=== PATIENT | female | born 1995 | race Caucasian/White ===

== ENCOUNTER 2016-08-29 19:52 | Emergency (ER) | payer BC, OTHER ==
[~2016-08-29 19:52] MED LIST: [UNRECOGNIZED DRUG - CODE] EXT; [UNRECOGNIZED DRUG - CODE] PO
[2016-08-29] MEDS ORDERED: TRAZ100T29 PO (20:34)
[2016-08-29] MEDS ORDERED: CHOL1000 PO (20:34)
[2016-08-29] MEDS ORDERED: LMC/150 PO (20:34)
[2016-08-29] MEDS ORDERED: MELA5TAB20 PO (20:34)
[2016-08-29] MEDS ORDERED: SERT25TA PO (20:34)
[2016-08-29] MEDS ORDERED: ATV/1 PO (20:34)
[2016-08-29] MEDS ORDERED: VITACAP26 PO (20:34)
[2016-08-29] MEDS ORDERED: MISCCAP80 PO (20:34)
[2016-08-29] MEDS ORDERED: BACL10TA PO (20:34)
[2016-08-29] MEDS ORDERED: MAGN1CAP4 PO (20:34)
--- NOTE | 2016-08-29 21:06 | DIAGNOSTIC IMAGING REPORT ---
LEFT FEMUR 2 VIEWS ROUTINE CLINICAL HISTORY: Left flank pain COMPARISON: None. DISCUSSION: The bones are gracile. No acute fractures are visualized. The bones are osteopenic IMPRESSION: No fractures, dislocations, or destructive lesions are visualized. Electronically signed by: Yair Siegel M.D. 08/29/2016 9:04 PM Dictated Date/Time: 08/29/2016 9:04 PM
[2016-08-29 21:40] VITALS: BP 122/70; PULSE 78; O2SAT 97
--- NOTE | 2016-08-30 04:52 | EMERGENCY ROOM VISIT NOTE ---
History Report prepared by Marcio: Margy Daniel Under the Supervision of: Dr. Cl Barnes M.D. First contact with patient: 20:25 Chief Complaint: OTHER COMPLAINT Stated Complaint: MUSCULAR/NEUROLOGICAL- HIP SEEMS TO BOTHER HER History of Present Illness The patient is a 20 year old female who presents to the Emergency Room via parents to be evaluated for persistent left leg discomfort with onset one day ago. As the patient is nonverbal, her parents provided the history. One day ago , the patient returned from home from school. The patient's aide was helping her out of the wheelchair and noticed that the patient was not helping her as much as she usually does. Her parents note that the school did not report any falls. Yesterday, her parents noticed that the patient would pull her left leg up as if it was bothering her. Usually, the patient can flip herself over into a crawling position, however, she has not been doing this. Along with the leg discomfort, the patient had increased drooling. She had more weakness and seemed more lethargic. The patient's mother notes that the patient's Baclofen dosage has been increased recently to three doses a day. The patient's mother denies LOC, headache, fevers, chills, diaphoresis, visual changes, neck pain, chest pain, breathing difficulties, nausea, vomiting, abdominal pain, back pain , melena, hematochezia, urinary symptoms, numbness, lymphadenopathy, rash, or other complaints. Additionally, the patient's mother notes that, one week ago, the patient had a dental procedure and was put under anaesthesia for this for two hours. Source of History: parent Onset: one day ago Position: leg (left) Quality: other (left leg discomfort ) Timing: other (persistent) Note: Along with the leg discomfort, the patient had increased drooling. She had more weakness and seemed more lethargic. Review of Systems See HPI for pertinent positives and negatives. A total of ten systems were reviewed and were otherwise negative. Past Medical & Surgical Medical Problems: (1) Nonverbal Family History Cancer Diabetes mellitus Hypertension Kidney disease Kidney stones Seizures Social History Smoking Status: Never Smoker Drug Use: none Housing Status: lives with family Occupation Status: student Current/Historical Medications Scheduled Baclofen (Lioresal), 10 MG PO BID Cholecalciferol (Vitamin D3), 1,000 UNITS PO DAILY Lamotrigine (Lamictal), 75 MG PO BID Lorazepam (Ativan), 1 MG PO HS Magnesium Oxide (Magnesium), 500 MG PO DAILY Melatonin (Cvs Melatonin), 5 MG PO HS Probiotic Product (Probiotic), 1 CAP PO DAILY Sertraline (Zoloft), 37.5 MG PO QAM Trazodone Hcl (Trazodone), 100 MG PO HS Vitamins C & E (Vitamin C), 1 CAP PO DAILY Allergies Coded Allergies: Morphine (Verified Allergy, Unknown, `, 08/29/16) Physical Exam Vital Signs Date Time Temp Pulse Resp B/P Pulse Ox O2 Delivery O2 Flow Rate FiO2 08/29/16 21:40 78 20 122/70 97 08/29/16 19:56 90 18 92/53 96 Room Air Physical Exam GENERAL: Awake, alert, well-appearing, in no distress HENT: Normocephalic, atraumatic. Oropharynx unremarkable. EYES: Normal conjunctiva. Sclera non-icteric. Pupils are equal, round, and reactive. NECK: Supple. No nuchal rigidity. FROM. No JVD. RESPIRATORY: Clear to auscultation. CARDIAC: Regular rate, normal rhythm. Extremities warm and well perfused. Pulses equal. ABDOMEN: Soft, non-distended. No tenderness to palpation. No rebound or guarding. No masses. RECTAL: Deferred. MUSCULOSKELETAL: Chest examination reveals no tenderness. The back is symmetrical on inspection without obvious abnormality. There is no CVA tenderness to palpation. No joint edema. Spasticity noted in the upper extremities, without any tenderness or deformity. LOWER EXTREMITIES: Calves are equal size bilaterally and non-tender. No edema. No discoloration. Spasticity noted in the lower extremities, without any tenderness or deformity. NEURO: MRCP (baseline per parents). SKIN: No rash or jaundice noted. Medical Decision & Procedures ER Provider Diagnostic Interpretation: X-ray: Per my interpretation, radiologist review. LEFT FEMUR 2 VIEWS ROUTINE CLINICAL HISTORY: Left flank pain COMPARISON: None. DISCUSSION: The bones are gracile. No acute fractures are visualized. The bones are osteopenic IMPRESSION: No fractures, dislocations, or destructive lesions are visualized. Electronically signed by: Yair Siegel M.D. 08/29/2016 9:04 PM Dictated Date/Time: 08/29/2016 9:04 PM ED Course 2036: The patient was evaluated in room C3. A complete history and physical exam was performed. 2120: I discussed the case with Dr. Lawson (Pediatrics), who is the patient's primary care physician. She agrees with the treatment plan. 2121: I reevaluated the patient. Discussed results and discharge instructions with the patient's parents. They verbalized understanding and agreement. The patient is ready for discharge. Medical Decision Prior records reviewed and summarized above. Triage Nursing notes reviewed and agree them. Additional history obtained from family and her lamp shades supervisor, Dr. Lawson The patient's history was concerning for possible leg pain. Differential diagnosis: Etiologies such as fracture, dislocation, medication side effect, soft tissue injury, as well as others were entertained. Physical examination: As above. No gross deformity. No signs of infection. ER treatment provided: No medication given. On reassessment the patient was doing well. Diagnostics interpreted by me: Imaging studies: Xrays as above. The patient presented on direction of her primary physician. Dr. Lawson did evaluate patient in the Emergency Room. There has been a recent increase in her baclofen dosing. The parents question if this could be related to that and they did contact neurology who recommended backing off on the dosing. The patient had x-ray imaging performed. There is no evidence of fracture or dislocation. I discussed conservative management with the patient and family as to Dr. Lawson and they felt very comfortable. If the Patient worsens in any way she will come back to the Emergency Room. By the evaluation outlined above emergent etiologies such as fracture, dislocation, neurovascular compromise, compartment syndrome, infections, as well as others were deemed relatively unlikely. The family was informed about the findings as listed above. All questions were answered and they were pleased with the treatment. Return instructions were outlined and the patient was discharged in stable condition. Referral: The patient was referred to their primary care physician next week for a recheck of your current condition. The chart was completed utilizing [employer] voice recognition software. Grammatical errors, random word insertions, pronoun errors, and incomplete sentences are an occasional consequence of this system due to software limitations, ambient noise, and hardware issues. Any formal questions or concerns about the content, text, or information contained within the body of this dictation should be directly addressed to the physician for clarification. Consults Time Called: 2119 Consulting Physician: Dr. Lawson (Pediatrics) Returned Call: 2120 I discussed the case with Dr. Lawson (Pediatrics), who is the patient's primary care physician. She agrees with the treatment plan. Impression Primary Impression: Left leg pain Scribe Attestation The scribe's documentation has been prepared under my direction and personally reviewed by me in its entirety. I confirm that the note above accurately reflects all work, treatment, procedures, and medical decision making performed by me. Departure Information Dispostion Home / Self-Care Referrals Hailey Lawson M.D. (PCP) Forms HOME CARE DOCUMENTATION FORM, IMPORTANT VISIT INFORMATION, WORK / SCHOOL INSTRUCTIONS Patient Instructions My [facility] Additional Instructions Follow the instructions by neurology to decrease the baclofen. X-ray imaging was negative. Continue current medications otherwise. Follow-up with your primary next week. Return to Emergency Room for increasing leg pain, weakness, fever, or as needed.
== END 2016-08-29 21:41 | disposition home or self-care (01) ==
LOC: C.EDB 19:53 → C.EDC 21:41
DX: M79.605 Pain in left leg (principal); Z80.9 Family history of malignant neoplasm, unspecified; Z82.49 Family history of ischemic heart disease and other diseases of the circulatory system; Z84.1 Family history of disorders of kidney and ureter; Z82.0 Family history of epilepsy and other diseases of the nervous system

== ENCOUNTER 2017-03-15 15:51 | Emergency (ER) | payer BC, OTHER ==
[~2017-03-15 15:51] MED LIST changes: +ATV/1 PO; +BACL10TA PO; +CHOL1000 PO; +LMC/150 PO; +MAGN1CAP4 PO; +MELA5TAB20 PO; +MISCCAP80 PO; +SERT25TA PO; +TRAZ100T29 PO; +VITACAP26 PO; -[UNRECOGNIZED DRUG - CODE] EXT; -[UNRECOGNIZED DRUG - CODE] PO
[2017-03-15 15:56] VITALS: TEMP 36.3
[2017-03-15] MEDS ORDERED: HYDROCODONE/APAP 2.5MG/108MG ELIX 5 ML UDP PO STA (16:20)
[2017-03-15] MEDS ORDERED: ACETAMINOPHEN/HYDROCODONE ELIX 15 ML/CUP UDP ONE (16:29)
[2017-03-15] MEDS ORDERED: BACITRACIN OINT 15 GM TUBE EXT ONE (16:30)
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
[2017-03-15 18:26] VITALS: BP 130/76; PULSE 95; O2SAT 99
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
== END 2017-03-15 18:27 | disposition home or self-care (01) ==
LOC: C.EDB 15:51
DX: S00.81XA Abrasion of other part of head, initial encounter (principal); S60.511A Abrasion of right hand, initial encounter; S60.512A Abrasion of left hand, initial encounter; S90.811A Abrasion, right foot, initial encounter; S00.511A Abrasion of lip, initial encounter; V18.1XXA Pedal cycle passenger injured in noncollision transport accident in nontraffic accident, initial encounter; Y92.410 Unspecified street and highway as the place of occurrence of the external cause; G80.9 Cerebral palsy, unspecified; Z79.899 Other long term (current) drug therapy; S02.5XXA Fracture of tooth (traumatic), initial encounter for closed fracture

== ENCOUNTER → 2017-08-29 | Outpatient (CLI) | payer OTHER ==
[2017-08-29 13:18] LABS: ALBUMIN 4.2 gm/dl (3.4-5.0); ALT/SGPT 33 U/L (12-78); AST/SGOT 19 U/L (15-37); BLOOD UREA NITROGEN 19 mg/dl (7-18); CALCIUM 9.5 mg/dl (8.5-10.1); CARBON DIOXIDE 28 mmol/L (21-32); CREATININE 0.62 mg/dl (0.60-1.20); GLUCOSE 87 mg/dl (70-99); POTASSIUM 3.9 mmol/L (3.5-5.1); SODIUM 140 mmol/L (136-145)
[2017-08-29 13:20] LABS: ALKALINE PHOSPHATASE 79 U/L (45-117); TOTAL PROTEIN 7.9 gm/dl (6.4-8.2)
== END | disposition home or self-care (01) ==
LOC: C.LAB1850 11:34
PROVIDERS: ATTEND Pediatrics
DX: G40.309 Generalized idiopathic epilepsy and epileptic syndromes, not intractable, without status epilepticus (principal); G82.50 Quadriplegia, unspecified

== ENCOUNTER 2017-11-06 11:07 | Emergency (ER) | payer OTHER ==
[2017-11-06] MEDS ORDERED: SODIUM CHLORIDE 0.9% 500ML 500 ML IV STA (11:42)
[2017-11-06] MEDS ORDERED: OPTIRAY 320 IV PRN (12:00)
--- NOTE | 2017-11-06 12:19 | EMERGENCY ROOM VISIT NOTE ---
History First contact with patient: 11:26 Chief Complaint: GI ASSESSMENT Stated Complaint: REF BY DR Gamble CONSTIPATION Nursing Triage Summary: pt mother states pt constipated and vomitting History of Present Illness The patient is a 22 year old female who presents to the Emergency Room with complaints of nausea, vomiting and constipation that has been going on for the last several weeks. The patient has a history of cerebral palsy. The patient saw her primary care physician. They suggested a stool softener. They have been trying a stool softener for the last 2 weeks. Patient's mother says that she has had a very large, baseball size, formed stools. There is a small amount of blood in them, which the patient's mother attributes to the size of the bowel movements. She does not complain of pain. No complaints of fever, chills or cough. Of note, the patient's mother says that her neurologist recently went up on her baclofen from 20 mg a day to 30 mg per day. Review of Systems 10 system review performed and negative unless noted in HPI or below. This was discussed with the mother at length. Past Medical/Surgical History Medical Problems: (1) Cerebral palsy (2) Nonverbal Family History Cancer Diabetes mellitus Hypertension Kidney disease Kidney stones Seizures Social History Smoking Status: Never Smoker Drug Use: none Housing Status: lives with family Occupation Status: student Current/Historical Medications Scheduled Baclofen (Lioresal), 10 MG PO BID Cholecalciferol (Vitamin D3), 1,000 UNITS PO DAILY Lamotrigine (Lamictal), 75 MG PO BID Lorazepam (Ativan), 1 MG PO HS Magnesium Oxide (Magnesium), 500 MG PO DAILY Melatonin (Cvs Melatonin), 5 MG PO HS Metoclopramide Hcl (Reglan), 10 MG PO Q8H Probiotic Product (Probiotic), 1 CAP PO DAILY Sertraline (Zoloft), 50 MG PO DAILY Trazodone Hcl (Trazodone), 100 MG PO HS Vitamins C & E (Vitamin C), 1 CAP PO DAILY Physical Exam Vital Signs Date Time Temp Pulse Resp B/P (MAP) Pulse Ox O2 Delivery O2 Flow Rate FiO2 11/06/17 14:44 67 18 108/82 96 Room Air 11/06/17 12:34 95 20 113/79 95 Room Air 11/06/17 11:15 92 18 84/50 97 Room Air Physical Exam GENERAL: 22-year-old female, physical and mental disability noted, SKIN: The skin was without rashes, erythema, edema, or bruising. HEAD: Normocephalic atraumatic. MOUTH: Mucous membranes fairly moist NECK: Supple without nuchal rigidity. No lymphadenopathy. HEART: Regular rate and rhythm without murmurs gallops or rubs. LUNGS: Clear to auscultation bilaterally without wheezes, rales or rhonchi. No accessory muscle use. ABDOMEN: Bowel sounds hypoactive. No tenderness to palpation noted. MUSCULOSKELETAL: Atrophy noted in the legs. No edema.. NEURO: Patient is nonverbal and does not follow commands Medical Decision & Procedures ER Provider Diagnostic Interpretation: CXR IMPRESSION: 1. No acute cardiopulmonary disease. 2. Diffuse gaseous distention of bowel suggesting ileus. Electronically signed by: Umberto Monreal M.D. 11/06/2017 4:49 PM Dictated Date/Time: 11/06/2017 4:48 PM The status of this report is Signed. Draft = Not yet reviewed or approved by Radiologist. Signed = Reviewed and approved by Radiologist. ct abd/pelvis IMPRESSION: 1. Diffuse gaseous distention of bowel without convincing evidence of obstruction. 2. Moderate stool burden in the sigmoid colon and rectum consistent with constipation. Disimpaction recommended. Electronically signed by: Umberto Monreal M.D. 11/06/2017 2:40 PM Dictated Date/Time: 11/06/2017 2:31 PM The status of this report is Signed. Draft = Not yet reviewed or approved by Radiologist. Signed = Reviewed and approved by Radiologist. <AttendingPhy></AttendingPhy> <FamilyPhy>Lien Gaspar D.O.</FamilyPhy> < PrimaryPhy>Lien Gaspar D.O.</PrimaryPhy> <UnitNumber>[id number]</UnitNumber > <VisitNumber>[id number]</VisitNumber> <PatientName>JUSTIN SMITH</ PatientName> <DateOfBirth>1995</DateOfBirth> <Location>[facility]</Location> < ServiceDate>11/06/17</ServiceDate> <MNE>ESINDI</MNE> <OrderingPhy>Urban, Niru P PA-C</OrderingPhy> <OrderingPhyMNE>f rep ord mne</OrderingPhyMNE> < DictatingPhyMNE>f rep dict mne</DictatingPhyMNE> <CCListMNE>f rep ct mne</ CCListMNE> <AdmittingPhyMNE>f pt admit dr grossman</AdmittingPhyMNE> <AttendingPhyMNE >f pt attend dr grossman</AttendingPhyMNE> <ConsultingPhyMNE>f pt consult dr grossman</ConsultingPhyMNE> <FamilyPhyMNE>f pt fam dr grossman</FamilyPhyMNE> <OtherPhyMNE>f pt other dr portilloe</OtherPhyMNE> < PrimaryPhyMNE>f pt prim care dr portilloe</PrimaryPhyMNE> <ReferringPhyMNE>f pt referring dr grossman</ReferringPhyMNE> Laboratory Results 11/06/17 12:15 Red Blood Count 4.88, Mean Corpuscular Volume 91.6, Mean Corpuscular Hemoglobin 30.5, Mean Corpuscular Hemoglobin Concent 33.3, Mean Platelet Volume 9.7, Neutrophils (%) (Auto) 75.3, Lymphocytes (%) (Auto) 17.9, Monocytes (%) (Auto) 5.4, Eosinophils (%) (Auto) 1.0, Basophils (%) (Auto) 0.2, Neutrophils # (Auto) 10.22, Lymphocytes # (Auto) 2.43, Monocytes # (Auto) 0.73, Eosinophils # (Auto) 0.14, Basophils # (Auto) 0.03 11/06/17 12:15 Test 11/06/17 12:15 11/06/17 12:25 White Blood Count 13.58 K/uL (4.8-10.8) Red Blood Count 4.88 M/uL (4.2-5.4) Hemoglobin 14.9 g/dL (12.0-16.0) Hematocrit 44.7 % (37-47) Mean Corpuscular Volume 91.6 fL (80-100) Mean Corpuscular Hemoglobin 30.5 pg (25-34) Mean Corpuscular Hemoglobin Concent 33.3 g/dl (32-36) Platelet Count 206 K/uL (130-400) Mean Platelet Volume 9.7 fL (7.4-10.4) Neutrophils (%) (Auto) 75.3 % Lymphocytes (%) (Auto) 17.9 % Monocytes (%) (Auto) 5.4 % Eosinophils (%) (Auto) 1.0 % Basophils (%) (Auto) 0.2 % Neutrophils # (Auto) 10.22 K/uL (1.4-6.5) Lymphocytes # (Auto) 2.43 K/uL (1.2-3.4) Monocytes # (Auto) 0.73 K/uL (0.11-0.59) Eosinophils # (Auto) 0.14 K/uL (0-0.5) Basophils # (Auto) 0.03 K/uL (0-0.2) RDW Standard Deviation 41.4 fL (36.4-46.3) RDW Coefficient of Variation 12.3 % (11.5-14.5) Immature Granulocyte % (Auto) 0.2 % Immature Granulocyte # (Auto) 0.03 K/uL (0.00-0.02) Anion Gap 5.0 mmol/L (3-11) Estimated GFR () 147.8 Estimated GFR (Non- 127.6 BUN/Creatinine Ratio 17.2 (10-20) Calcium Level 9.1 mg/dl (8.5-10.1) Magnesium Level 2.1 mg/dl (1.8-2.4) Total Bilirubin 0.3 mg/dl (0.2-1) Aspartate Amino Transf (AST/SGOT) 24 U/L (15-37) Alanine Aminotransferase (ALT/SGPT) 40 U/L (12-78) Alkaline Phosphatase 67 U/L (45-117) Total Protein 7.1 gm/dl (6.4-8.2) Albumin 3.9 gm/dl (3.4-5.0) Globulin 3.2 gm/dl (2.5-4.0) Albumin/Globulin Ratio 1.2 (0.9-2) Urine Color YELLOW Urine Appearance CLEAR (CLEAR) Urine pH >= 9.0 (4.5-7.5) Urine Specific [place] 1.022 (1.000-1.030) Urine Protein NEG (NEG) Urine Glucose (UA) NEG (NEG) Urine Ketones NEG (NEG) Urine Occult Blood NEG (NEG) Urine Nitrite NEG (NEG) Urine Bilirubin NEG (NEG) Urine Urobilinogen NEG (NEG) Urine Leukocyte Esterase NEG (NEG) Medications Administered Medications (Trade) Dose Ordered Sig/Franco Route Start Time Stop Time Status Last Admin Dose Admin Sodium Chloride 500 ml @ 999 mls/hr Q31M STAT IV 11/06/17 11:42 11/06/17 12:12 DC 11/06/17 11:42 999 MLS/HR Midazolam HCl (Versed Inj) 2.5 mg ONE STAT IV 11/06/17 15:16 11/06/17 15:17 DC 11/06/17 15:42 2.5 MG ED Course Patient was seen and examined Vital signs including blood pressure were reviewed medications list was verified with patient Labs were obtained, and a saline lock was established The patient was hydrated with 500 cc of normal saline Imaging was performed and reviewed. The patient was reassessed. I discussed the results with the mother at length. She voiced understanding. After 1 dose of Versed 2.5 mg IV, a manual disimpaction was performed by myself. A moderate amount of stool was removed from the rectum. The patient tolerated the procedure well. A chest x-ray was performed. A mineral enema was ordered. I was approached by the RN that the patient's mother was very upset that the chest x-ray was taking so long. I came and assessed the patient and spoke with the mother who said "I am freaking done. I am seriously pissed. we have been here too long." I apologized explaining I was tied up with another patient. I advised the mother that I could discharge the patient in follow-up on the chest x-ray. She was in agreement. She declined the enema. I reviewed discharge instructions the patient. They voiced understanding and had no further questions. Medical Decision Differential diagnosis: Constipation, fecal impaction, motility disorder, adverse reaction to medication, viral GI illness, bacterial GI illness, other infectious etiology This patient is a 22-year-old female with a history of cerebral palsy that presents to the emergency department with vomiting and constipation. On exam, her abdomen was fairly benign. The patient's mother denied any other illnesses. They were concerned because of the vomiting. The patient's workup reveals leukocytosis. This was compared with labs from a few days ago as an outpatient. The leukocytosis was new. I ordered a CT of the abdomen and pelvis. This is consistent with an ileus and fecal impaction. I performed a fecal disimpaction in the emergency department with fairly good results. Due to time constraints, the mother refused the mineral enema. I ordered a checks x -ray given the vomiting and leukocytosis. This was negative for pneumonia. The patient's mother was advised of the leukocytosis, and I recommended very close follow-up. She was in agreement and was discharged in good condition. This chart was completed in part utilizing [employer] Speech Voice Recognition software. Attempts were made to minimize the grammatical errors, random word insertions, pronoun errors and incomplete sentences. Any formal questions or concerns about the content, text or information contained within the body of this dictation should be directly addressed to the provider for clarification. Medication Reconcilliation Current Medication List: was personally reviewed by me Blood Pressure Screening Patient's blood pressure: Low blood pressure Impression Primary Impression: Fecal impaction Departure Information Dispostion Home / Self-Care Condition GOOD Prescriptions Metoclopramide Hcl (REGLAN) 10 Mg Tab 10 MG PO Q8H for Nausea or Vomiting, #20 TAB Prov: Niru August PA-C 11/06/17 Referrals Lien Gaspar D.O. (PCP) Patient Instructions My [facility] Additional Instructions Justin was seen in the emergency department for vomiting and constipation. A CAT scan showed a significant amount of stool in the colon consistent with constipation and fecal impaction. We attempted to alleviate this in the emergency department by manual fecal impaction and a mineral enema. Please use Dulcolax suppositories every 12 hours for constipation. Reglan 1 tab every 8 hours as needed for nausea Follow-up very closely with her primary care physician. Please call today for a follow-up appointment. Do not hesitate to return to the emergency department with any new, worsening or concerning symptoms; especially, persistent vomiting, difficulty breathing, cough or fever It was a pleasure participating in her care today
[2017-11-06 12:25] LABS: BASO % 0.2 %; BASO ABS # 0.03 K/uL (0-0.2); EOS ABS # 0.14 K/uL (0-0.5); HEMATOCRIT 44.7 % (37-47); HEMOGLOBIN 14.9 g/dL (12.0-16.0); IG# 0.03 K/uL (0.00-0.02); LYMPH % 17.9 %; LYMPH ABS # 2.43 K/uL (1.2-3.4); MEAN CELL VOLUME 91.6 fL (80-100); MEAN CORPUSCULAR HEMOGLOBIN 30.5 pg (25-34); MEAN CORPUSCULAR HGB CONC 33.3 g/dl (32-36); MEAN PLATELET VOLUME 9.7 fL (7.4-10.4); MONO % 5.4 %; MONO ABS # 0.73 K/uL (0.11-0.59); NEUT % 75.3 %; NEUT ABS # 10.22 K/uL (1.4-6.5); PLATELET COUNT 206 K/uL (130-400); RED CELL DISTRIBUTION WIDTH CV 12.3 % (11.5-14.5); RED CELL DISTRIBUTION WIDTH SD 41.4 fL (36.4-46.3); WHITE BLOOD COUNT 13.58 K/uL (4.8-10.8)
[2017-11-06 12:49] LABS: ALBUMIN 3.9 gm/dl (3.4-5.0); ALT/SGPT 40 U/L (12-78); BLOOD UREA NITROGEN 11 mg/dl (7-18); CALCIUM 9.1 mg/dl (8.5-10.1); CARBON DIOXIDE 27 mmol/L (21-32); CREATININE 0.64 mg/dl (0.60-1.20); GLUCOSE 91 mg/dl (70-99); POTASSIUM 3.6 mmol/L (3.5-5.1); SODIUM 141 mmol/L (136-145)
[2017-11-06 12:51] LABS: ALKALINE PHOSPHATASE 67 U/L (45-117); AST/SGOT 24 U/L (15-37); TOTAL PROTEIN 7.1 gm/dl (6.4-8.2)
[2017-11-06] MEDS ORDERED: SERT50TA PO (13:33)
--- NOTE | 2017-11-06 14:42 | DIAGNOSTIC IMAGING REPORT ---
ABD/PELVIS IV AND ORAL CONT CLINICAL HISTORY: 22 years-old Female presenting with n/v constipation. TECHNIQUE: Multidetector CT of the abdomen and pelvis was performed after the administration of oral and intravenous contrast. IV contrast: 121 mL of Optiray 320. A dose lowering technique was used consistent with the principles of ALARA (as low as reasonably achievable). COMPARISON: None. CT DOSE (mGy.cm): The estimated cumulative dose is 420.38 mGy.cm. FINDINGS: Telephone Claims Representative topogram: Diffuse gaseous distention of bowel. Lung bases: Minimal basilar opacities, likely atelectasis. Mosaic attenuation could suggest small airways disease. Normal heart size. No pericardial or pleural effusion. 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 No focal lesion. Biliary: No intrahepatic or extrahepatic biliary ductal dilatation. Normal gallbladder. Pancreas: Normal. Spleen: Normal. Adrenal glands: Normal. Kidneys and ureters: Normal. No hydronephrosis. Bladder: Incompletely evaluated secondary to underdistention. Pelvic organs: Uterus and ovaries normal. Bowel: Moderate stool burden in the sigmoid colon and rectum. Diffuse gaseous distention of bowel. The appendix is normal. Diffuse gaseous distention of small bowel without evidence of a focal transition point to suggest obstruction. Short segment jejunojejunal intussusception evident near the ligament of Treitz, which is likely inconsequential and transient. Peritoneal cavity: No free fluid or intraperitoneal gas. Lymph nodes: No enlarged lymph nodes in the abdomen or pelvis. Vasculature: Aorta and IVC patent and normal in caliber. Abdominal wall: Small fat-containing umbilical hernia. Musculoskeletal: Normal. IMPRESSION: 1. Diffuse gaseous distention of bowel without convincing evidence of obstruction. 2. Moderate stool burden in the sigmoid colon and rectum consistent with constipation. Disimpaction recommended. Electronically signed by: Umberto Monreal M.D. 11/06/2017 2:40 PM Dictated Date/Time: 11/06/2017 2:31 PM
[2017-11-06 14:44] VITALS: BP 108/82; PULSE 67; O2SAT 96
[2017-11-06] MEDS ORDERED: MIDAZOLAM HCL 1 MG/ML 2ML VIAL IV STA (15:16)
[2017-11-06] MEDS ORDERED: METO1TAB55 PO (16:39)
--- NOTE | 2017-11-06 16:51 | DIAGNOSTIC IMAGING REPORT ---
CHEST ONE VIEW PORTABLE CLINICAL HISTORY: 22 years-old Female presenting with vomiting leukocytosis. TECHNIQUE: Portable upright AP view of the chest was obtained. COMPARISON: 03/15/2017. FINDINGS: Cardiomediastinal silhouette normal. Mildly low lung volumes with hypoventilatory changes. No gross evidence of a focal opacity. No large effusion or pneumothorax. Osseous structures normal. Significant gaseous distention of small and large bowel. No gross pneumoperitoneum. IMPRESSION: 1. No acute cardiopulmonary disease. 2. Diffuse gaseous distention of bowel suggesting ileus. Electronically signed by: Umberto Monreal M.D. 11/06/2017 4:49 PM Dictated Date/Time: 11/06/2017 4:48 PM
== END 2017-11-06 17:01 | disposition home or self-care (01) ==
LOC: C.EDB 11:08
DX: K56.41 Fecal impaction (principal); R11.10 Vomiting, unspecified; D72.829 Elevated white blood cell count, unspecified; G80.9 Cerebral palsy, unspecified